=== PATIENT | female | born 1995 | race Caucasian/White ===

== ENCOUNTER 2018-08-06 20:30 | Emergency (ER) | payer MEDICAID ==
[~2018-08-06] VITALS: Ht 157.5 cm; Wt 75.0 kg
[2018-08-06 21:22] VITALS: BP 119/81
== END 2018-08-06 21:26 | disposition home or self-care (01) ==
LOC: ER 20:51
DX: L03.115 Cellulitis of right lower limb (principal)
CPT/HCPCS: 99283

== ENCOUNTER 2024-08-14 21:39 | Emergency (ER) | payer MEDICAID, OTHER ==
[~2024-08-14] VITALS: Ht 167.6 cm; Wt 73.0 kg
[2024-08-14 21:50] VITALS: O2SAT 100
[2024-08-14 23:15] VITALS: BP 136/80; PULSE 85; RESP 16; TEMP 36.78072; O2SAT 99
== END 2024-08-14 23:15 | disposition home or self-care (01) ==
LOC: ER 21:39
DX: R09.89 Other specified symptoms and signs involving the circulatory and respiratory systems (principal)
CPT/HCPCS: 71045; 99283